=== PATIENT | female | born 1995 | race Caucasian/White ===

== ENCOUNTER 2019-04-04 12:37 | Emergency (ER) | payer OTHER, SELFPAY ==
[2019-04-04 12:38] VITALS: BP 128/83; PULSE 82; RESP 16; TEMP 36.8; O2SAT 99; BMI 27.3
[2019-04-04] MEDS: 0.9% Normal Saline 1,000 ML 1000 ML IV (13:05)
[2019-04-04] MEDS: Ondansetron 4 MG/2 ML Vial IV (13:05)
[2019-04-04 13:18] LABS: Bacteria 0 SEEN /hpf (None Seen); Mucous, Urine 0 SEEN /hpf (<or=2+); Red Blood Cells-Urine 0 SEEN /hpf (0-5); Squamous Epithelial Cells - UA 0 SEEN /hpf (5-10); White Blood Cells 0 SEEN /hpf (0-5)
[2019-04-04 13:20] LABS: Color, Urine Yellow (Yellow); Glucose, Dipstick Normal (Normal); Ketone-Dipstick Negative (Negative); Leukocyte Esterase-Dipstick Negative /ul (Negative); Nitrite-Dipstick Negative (Negative); Occult Blood-Urine Negative /ul (Negative); Protein-Dipstick Negative (Negative); Urine Bilirubin Dipstick Negative (Negative); Urine Clarity Clear (Clear); Urine Urobilinogen Normal (Normal)
[2019-04-04 13:21] LABS: Absolute Lymphocyte Count 1.53 X10^3/ul (0.83-4.51); Absolute Neutrophil Count 3.9 X10^3/uL (2.0-7.7); Basophil# 0.02 X10^3/uL; Basophil% 0.3 % (0-1); Eosinophil# 0.03 X10^3/uL; Eosinophils% 0.5 % (0-5); Hemoglobin 12.8 g/dl (12.0-15.0); Lymphocyte # 1.53 X10^3/ul (4.0); Lymphocyte % 25.8 % (19-41); Mean Corp Hgb Conc 33.7 g/gl (32-36); Mean Corpuscular Hgb 27.1 pg (27.0-32.0); Mean Corpuscular Volume 80.5 fL (81-99); Mean Platelet Vol. 10.6 fl (6.2-12.0); Monocyte# 0.46 X10^3/uL; Monocyte% 7.8 % (0-10); Neutrophil # 3.89 X10^3/uL (2.7-7.7); Neutrophil % 65.6 % (47-70); Platelet Count 188 K/mm3 (150-450); RBC Distribution Width SD 37.5 fl (35.1-43.9); Red Blood Count 4.72 M/mm3 (4.2-5.4); White Blood Count 5.9 K/mm3 (4.4-11.0)
[2019-04-04 13:26] LABS: Internal QC Validated? YES +Cl - CLEAR BKGD; Pregnancy, Urine Negative Negative
[2019-04-04 13:26] LABS: POSITIVE COUNT NO; POSITIVE DIFFERENTIAL NO; POSITIVE MORPHOLOGY NO
[2019-04-04 13:34] LABS: AST(SGOT) 10 U/L (15-37); Alanine Aminotransfer ALT/SGPT 23 U/L (13-56); Albumin, Serum 3.9 g/dL (3.2-5.0); Alkaline Phosphatase 57 U/L (45-117); Anion Gap 7 (5-15); BUN 11 mg/dL (7-18); BUN/Creat Ratio 14.7 RATIO (10-20); Calcium,Total 8.9 mg/dL (8.5-10.1); Chloride 106 mmol/L (98-107); Creatinine, Serum 0.75 mg/dL (0.55-1.02); EST Glomerular Filtration Rate 103 mL/min (>60); Est Glom Filt Rate - Afr Amer 124 mL/min (>60); Estimated Creatinine Clearance 106.77 ml/min; Globulin 3.8 g/dL (2.2-4.2); Glucose 99 mg/dL (74-106); Lipase 78 U/L (73-393); Potassium 3.9 mmol/L (3.5-5.1); Protein, Total 7.7 g/dL (6.4-8.2); Sodium Level 141 mmol/L (136-145)
--- NOTE | 2019-04-04 13:34 | ED.VISSUMM ---
- ER Visit Summary Date of Service: 04/04/19 Chief Complaint: Abdominal pain History of Present Illness: The patient is a 23 F presents to the emergency department abdominal pain. The patient's been having symptoms for the past 2 or 3 days. She states she is been having some abnormal menstrual bleeding and the pain is corresponds to that. She states that the cramping. She is been mildly nauseated without vomiting. She is concerned that she was . She denies any urinary symptoms. She denies any flank pain. She had no history of prior abdominal surgery. She has not found anything that improves the symptoms. Physical Examination: Vital signs reviewed General: Well-nourished, well-developed Head: Normocephalic, atraumatic Eyes: Pupils equal and reactive, extraocular muscles intact Neck, supple, no lymphadenopathy Heart: Regular rate and rhythm Respiratory: No distress, clear bilaterally Abdomen: Soft, nontender, nondistended, no peritoneal signs Back: Nontender Extremities: Nontender, no edema, no cords Skin: Normal color no rash Neuro: Alert and oriented, no focal or lateralizing deficits Test Results: [] Emergency Department Course and Treatment: [The patient really has no reproducible pain. IV was established. Screening labs were obtained. These are unremarkable. Patient has had intermittent pain for 3 days. She is not . There is no evidence of urinary tract infection. At this point, I do feel that she is safe for outpatient follow-up. I am going to treat her with antiemetics and antispasmodics. She was counseled on concerning symptoms and reasons to return. She will be discharged home. Treatment Plan: [] Disposition: Discharge Impression: 1. Periumbilical abdominal pain This note was generated with [employer] dictation software. It may contain incorrect words, spelling, and punctuation that were not noted in review of the chart prior to signing ED Disposition - Plan for ED Patient: Disposition: Home or Assisted Living Instructions: ED Abdominal Pain Unkn Cause Prescriptions: Ondansetron [Zofran Odt] 4 mg PO Q8H PRN PRN #10 tab PRN Reason: Nausea RX: Dicyclomine HCl [Bentyl] 20 mg PO TIDAC #20 cap Referrals: NOT,DEFINED [NON-STAFF] -
[2019-04-04 13:53] VITALS: BP 113/68; PULSE 76; RESP 15
== END 2019-04-04 13:55 | disposition home or self-care (01) ==
PROVIDERS: Emergency Provider Emergency Medicine
DX: R10.33 Periumbilical pain (principal)
CPT/HCPCS: 80053; 81001; 81025; 83690; 85025; 96361; 96374; 99283; J7030; J2405

== ENCOUNTER 2024-10-22 09:27 | Day surgery (SDC) | payer OTHER, SELFPAY ==
[2024-10-22] VITALS (16 sets, daily range): BP systolic 95–130; BP diastolic 58–84; PULSE 71–99; RESP 16–18; TEMP 36.3–36.8; O2SAT 94–100; BMI 27.3
--- NOTE | 2024-10-22 10:09 | EDS_ITS ---
HPI HPI - GI History of Present Illness Chief Complaint: Abd Pain Informant: patient and spouse/S.O. Narrative Narrative: Patient with left-sided abdominal pain started gradually yesterday. She states it is not severe but it is there and unusual. She did home test and it was positive. She states her last normal menstrual cycle started almost 2 weeks ago, she did a test then and it was negative, she was doing that because she had a miscarriage in August and this was the first time she had a cycle since then. Not counting current if , she is G6, P3. She has no medical problems has no history of abdominal surgeries. She denies any urinary symptoms with this, nausea or vomiting, pain in the back, diarrhea, fevers or chills. PFSH PFSH Medical History no medical history no medical history Home Medications ?Medication ?Instructions ?Recorded ?Last Taken ?Type dicyclomine 10 mg capsule 20 mg (2 x 10 mg) PO TIDAC #20 caps 04/04/19 Unknown Rx ondansetron 4 mg disintegrating 4 mg PO Q8H PRN PRN Nausea #10 tabs 04/04/19 Unknown Rx tablet Allergy/AdvReac Type Severity Reaction Status Date / Time No Known Allergies Allergy Verified 10/22/24 09:31 Social History Smoking Status: Never smoker ROS ROS ED Constitutional Constitutional ED: Denies chills or fever(s) Eyes Eyes: Denies change in vision or diplopia ENT ENT ED: Denies rhinorrhea or sore throat Cardiovascular Cardiovascular: Denies chest pain or palpitations Respiratory/Chest Respiratory/Chest: Denies cough or dyspnea Gastrointestinal Gastrointestinal: Reports abdominal pain; Denies diarrhea, nausea or vomiting Genitourinary Genitourinary ED: Denies dysuria or hematuria Musculoskeletal Musculoskeletal: Denies back pain or neck pain Integumentary Denies abscess or rash Neurologic Neurologic: Denies headache(s), paresthesias or weakness Psychiatric Psychiatric: Denies anxiety or suicidal thoughts EXAM Physical Exam Const Vital Signs: 10/22/24 09:28 10/22/24 11:28 10/22/24 13:00 Temperature 97.4 F L Temperature Source Temporal Pulse Rate 82 84 90 Respiratory Rate 16 16 16 Blood Pressure 127/81 H 120/81 H 120/71 Blood Pressure Mean 96 94 87 Pulse Ox 97 99 98 Oxygen Delivery Method Room Air 10/22/24 15:00 Temperature Temperature Source Pulse Rate 84 Respiratory Rate 16 Blood Pressure 119/81 H Blood Pressure Mean 93 Pulse Ox 100 Oxygen Delivery Method Room Air Positive well nourished and well developed General Appearance ED: well developed and NAD HEENT Reports moist mucous membranes normocephalic and atraumatic Eyes PERRL and EOMs intact bilaterally Neck full ROM and supple Resp normal respiratory effort and clear to auscultation bilaterally Cardio regular rate, regular rhythm and no murmurs GI non-distended GI Narrative: Very mild tenderness left mid abdomen. She is nontender throughout the pelvis. Auscultation: normoactive bowel sounds Palpation: soft Back/Spine no CVA tenderness General Back: other FROM Extremity normal to inspection General Extremety ED: Negative for edema, pulses abnormal or tenderness General Extremity: Negative for edema or pulses abnormal Neuro oriented x3, CN's II-XII intact bilaterally and no sensory deficits noted Sensorium / Orientation: awake and alert Motor Exam: strength 5/5 throughout Skin no rashes or lesions noted and no wounds MDM MDM MDM Narrative Medical decision making narrative: Unilateral abdominal pain with positive home test certainly suggest the possibility of an ectopic , however the patient does not have any pelvic tenderness, not that she could not still have an ectopic, but initially obtained a urine since she urinated soon after my evaluation; her test is positive so we sent a quantitative hCG which is in the 300s, and obtained an ultrasound to evaluate for ectopic. I reviewed the images and the report and spoke with radiologist, who confirms that the patient does have very suspicious findings for an ectopic near the left ovary that is probably in the distal aspect of the fallopian tube. Small amount of free fluid. I discussed with the armhole baster jumpbasting on-call Dr. 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 She came and evaluated the patient, and plans on taking the patient for laparoscopic surgery. Lab Data Attestation: I reviewed the patient's lab results. Labs: Laboratory Results - last 24 hr 10/22/24 10/22/24 10:06 11:30 WBC 4.3 L RBC 4.35 Hgb 11.4 L Hct 36.6 L MCV 84.1 MCH 26.2 L MCHC 31.1 L RDW Std Deviation 42.7 RDW Coeff of Lianne 13.8 Plt Count 212 MPV 10.7 Immature Gran % (Auto) 0.500 Neut % (Auto) 61.5 Lymph % (Auto) 28.9 [place] % (Auto) 7.0 Eos % (Auto) 1.6 Baso % (Auto) 0.5 Absolute Neuts (auto) 2.6 Absolute Lymphs (auto) 1.23 Nucleated RBC % 0 Sodium 138 Potassium 3.9 Chloride 112 H Carbon Dioxide 24.0 Anion Gap 3 L BUN 15 Creatinine 0.80 Estim Creat Clear Calc 118.39 Est GFR (MDRD) Af Amer 111 Est GFR (MDRD) Non-Af 91 BUN/Creatinine Ratio 18.8 Glucose 97 Calcium 8.9 Total Bilirubin 0.30 AST 14 L ALT 24 Alkaline Phosphatase 58 Total Protein 7.7 Albumin 3.8 Globulin 3.9 Albumin/Globulin Ratio 1.0 HCG, Quant 338 H Serum , Qual POSITIVE Urine Color Straw Urine Clarity Clear Urine pH 6.0 Ur Specific [place] 1.005 Urine Protein Negative Urine Glucose (UA) Normal Urine Ketones Negative Urine Occult Blood 10 H Urine Nitrite Negative Urine Bilirubin Negative Urine Urobilinogen Normal Ur Leukocyte Esterase Negative Urine RBC 0 SEEN Urine WBC 0 SEEN Ur Squamous Epith Cells 0 SEEN Urine Bacteria 0 SEEN Urine Mucus 0 SEEN Radiography Diagnostic Testing: Clinical Impression(s) from Imaging Studies Obstetrics Ultrasound 10/22/24 11:48 IMPRESSION: No evidence of intrauterine gestational sac. Left adnexal findings raise the possibility of ectopic . Electronically Signed: Sylvester Ragsdale MD at 14:25 EST , ADDENDUM: 10/22/24 1438 IMPRESSION: No evidence of intrauterine gestational sac. Left adnexal findings raise the possibility of ectopic . N.B. : The above Results were Read Back by Sylvester Ragsdale MD to Venancio Zhong MD, and understanding confirmed on 10/22/2024 14:31:58 (ET). Electronically Signed: Sylvester Ragsdale MD at 14:25 EST , Management Discussion w/another healthcare provider: Nurse Special and Radiologist Critical Care Time Critical Care Time: Yes Critical care time (excluding procedures): 30-74 minutes (36 min), Including time spent:, Discussing w/Patient &/or Family/Sales Support Rep, Discussing w/Consultants, Arranging Admission or Transfer and Performing Direct Patient Care at Bedside Discharge Plan Triage Chief Complaint: Abd Pain ED Provider: Venancio Zhong Dx/Rx/DC Orders Clinical Impression: Ectopic of left ovary Prescriptions: No Action ondansetron 4 MG tablet 4 mg PO Q8H PRN PRN (Reason: Nausea) Qty: 10 0RF dicyclomine 10 MG capsule 20 mg PO TIDAC Qty: 20 0RF Primary Care Provider: Care Physician,No Primary Referrals: Care Physician,No Primary [Primary Care Provider] - Print Language: Mongolian Disposition Disposition: Acute Care [facility]
[2024-10-22 10:18] LABS: Absolute Lymphocyte Count 1.23 X10^3/uL (0.83-4.51); Absolute Neutrophil Count 2.6 X10^3/uL (2.0-7.7); Basophil# 0.02 X10^3/uL; Basophil% 0.5 % (0-1); Eosinophil# 0.07 X10^3/uL; Eosinophils% 1.6 % (0-5); Hematocrit 36.6 % (37-47); Hemoglobin 11.4 g/dL (12.0-15.0); Lymphocyte # 1.23 X10^3/ul (0.83-4.51); Lymphocyte % 28.9 % (19-41); Mean Corp Hgb Conc 31.1 g/dL (32-36); Mean Corpuscular Hgb 26.2 pg (27.0-32.0); Mean Corpuscular Volume 84.1 fL (81-99); Mean Platelet Vol. 10.7 fl (6.2-12.0); NRBC Flagged by Analyzer 0 % (0-5); Neutrophil # 2.62 X10^3/uL (2.7-7.7); Neutrophil % 61.5 % (47-70); Platelet Count 212 K/mm3 (150-450); RBC Distribution Width CV 13.8 % (11.6-14.6); RBC Distribution Width SD 42.7 fl (35.1-43.9); Red Blood Count 4.35 M/mm3 (4.2-5.4); White Blood Count 4.3 K/mm3 (4.4-11.0)
[2024-10-22 10:35] LABS: Internal QC Validated? YES +Cl - CLEAR BKGD
[2024-10-22 10:37] LABS: Pregnancy, Serum, hCG Quali. POSITIVE Negative
[2024-10-22 10:43] LABS: AST(SGOT) 14 U/L (15-37); Alanine Aminotransfer ALT/SGPT 24 U/L (13-56); Albumin, Serum 3.8 g/dL (3.2-5.0); Alkaline Phosphatase 58 U/L (45-117); Anion Gap 3 (5-15); BUN 15 mg/dL (7-18); BUN/Creat Ratio 18.8 RATIO (10-20); Calcium,Total 8.9 mg/dL (8.5-10.1); Chloride 112 mmol/L (98-107); EST Glomerular Filtration Rate 91 mL/min (>60); Est Glom Filt Rate - Afr Amer 111 mL/min (>60); Estimated Creatinine Clearance 118.39 ml/min; Globulin 3.9 g/dL (2.2-4.2); Glucose 97 mg/dL (74-106); Potassium 3.9 mmol/L (3.5-5.1); Protein, Total 7.7 g/dL (6.4-8.2); Sodium Level 138 mmol/L (136-145)
[2024-10-22 11:33] LABS: Bacteria 0 SEEN /hpf (None Seen); Mucous, Urine 0 SEEN /hpf (<or=2+); Red Blood Cells-Urine 0 SEEN /hpf (0-5); Squamous Epithelial Cells - UA 0 SEEN /hpf (5-10); White Blood Cells 0 SEEN /hpf (0-5)
[2024-10-22 11:36] LABS: Color, Urine Straw (Yellow); Glucose, Dipstick Normal (Normal); Ketone-Dipstick Negative (Negative); Leukocyte Esterase-Dipstick Negative /ul (Negative); Nitrite-Dipstick Negative (Negative); Occult Blood-Urine 10 /ul (Negative); Protein-Dipstick Negative (Negative); Specific Gravity, Urine 1.005 (1.002-1.030); Urine Bilirubin Dipstick Negative (Negative); Urine Clarity Clear (Clear); Urine Urobilinogen Normal (Normal)
--- NOTE | 2024-10-22 11:48 | US_ITS ---
We are attempting to reach an attending provider to discuss findings. An addendum with communication details will be sent when the communication is complete. EXAM: US , TRANSVAGINAL CLINICAL INDICATION: left sided pain, bleeding HCG 338 TECHNIQUE: Real-time endovaginal obstetrical ultrasound of the maternal pelvis and a first trimester with image documentation. Transvaginal imaging was used for better evaluation of the fetus and adnexa. COMPARISON: No relevant prior studies available. FINDINGS: GESTATION: There is measures 7.9 x 6.0 x 4.5 cm with endometrial thickness of 6 mm. No evidence of an intrauterine gestational sac. PLACENTA/AMNIOTIC FLUID: Cannot be adequately evaluated due to the early gestational age. UTERUS/CERVIX: Normal. Anteverted. No uterine mass. OVARIES: Left ovary measures 2.6 x 2.2 x 1.6 cm. Additional 2.6 cm complex structure adjacent to the left ovary raises the possibility of ectopic . Right ovary measures 2.5 x 2.5 x 2.2 cm and contains 2.5 cm complex cyst/corpus luteum. FREE FLUID: Small amount of free fluid is present within the cul-de-sac. US/Transvaginal w/Preg US IMPRESSION: No evidence of intrauterine gestational sac. Left adnexal findings raise the possibility of ectopic . Electronically Signed: Sylvester Ragsdale MD at 14:25 EST ,
[2024-10-22 12:33] LABS: hCG Titer Quant., Serum 338 mIU/mL (1-3)
--- NOTE | 2024-10-22 16:18 | HP.PCM_ITS ---
History and Physical Date of Admission: 10/22/24 I was asked to consult on this patient in the emergency room by Dr. Zhong for suspected ectopic . 29-year-old female presents with LMP approximately 2 weeks ago. She started having some left-sided mid abdominal pain yesterday, was sharp and stabbing at time. Was able to sleep last night but it was worse this morning so she came into the emergency room to be evaluated because she was concerned. She denies any fevers or chills. She has had vaginal bleeding over the past 2 weeks it was like a period and is trailing off now. She denies any chest pain, shortness of breath, or palpitations. She denies any nausea vomiting diarrhea or constipation or abnormal vaginal discharge Past medical history: Patient denies any cardiac, renal, respiratory or bleeding disorders Past surgical history: None Social history: Patient denies any drugs alcohol or tobacco Allergies: None Medications patient states she takes some herbs and supplements and a vitamin Obstetrical history: Patient reports 2 spontaneous miscarriages that she passed at home, a full-term and the baby 1 day after , 2 other full- term deliveries and those children are living, then an early miscarriage approximately 2 months ago that she passed at home, then the current Physical exam: Vitals reviewed General: Awake, alert, no acute distress Lungs clear to auscultation bilaterally Heart S1-S2 regular rate and rhythm Skin: Warm dry and intact Abdomen soft, nondistended, no rebound, no referred pain with Right lower quadrant palpation but some significant guarding in the left lower quadrant. No CVA tenderness Consent obtained for sensitive exam. Normal external genitalia, normal urethra and anus, normal vagina with small amount of brown-tinged mucus discharge. Cervix is closed. Uterus is mobile, 5 weeks size, significant tenderness in the left adnexal with cervical motion Assessment & Plan Assessment/Plan (1) Ruptured left tubal ectopic causing hemoperitoneum: PLAN: US and labs reviewed. R/b/a to expectant versus medical versus surgical management were reviewed with the patient and her . Their questions were answered to their satisfaction. After discussion they elect to proceed with laparoscopic evacuation of ectopic , will attempt a left salpingostomy but they understand there is a chance of salpingectomy. Consent was signed. Team was notified. This consultation in the emergency room was ordered by Dr. Zhong and I reviewed findings and plan with him directly after my evaluation.
--- NOTE | 2024-10-22 17:05 | PCM.PRE.AN2 ---
ASA Classification* ASA Classification ASA Classification: 2 and E Assessment & Plan Anesthesia* Anesthesia Assessment Anesthesia Assessment: Discussed sedation and/or anesthesia options, risks, benefits, and alternatives with patient/parents/legal guardian/POA. Questions invited. The patient/parents/legal guardian/POA seems to understand and agrees to proceed with anesthesia plan. Reviewed the physical assessment, medical history, allergy history and patient home medications list prior to surgery/procedure/anesthetic and documented any changes. Performed airway and anesthesia risk assessments. Anesthesia Type Anesthesia Type: General History Source History Obtained from:: Patient and Chart Anesthesia Focused Assessment* Temperature: 98.2 F Pulse Rate: 86 Blood Pressure: 124/78 Respiratory Rate: 16 Pulse Ox: 99 Oxygen Delivery Method: Room Air Airway Assessment Mouth opens: >3 cm Mallampati Score: III Teeth Condition: Dentures (Patient has full upper and lower dentures. They will come out.) Neck Range of motion (ROM): Full ROM Focused Labs Anesthesia Preop lab: CBC WBC 4.3 K/mm3 (4.4-11.0) L 10/22/24 10:06 RBC 4.35 M/mm3 (4.2-5.4) 10/22/24 10:06 Hgb 11.4 g/dL (12.0-15.0) L 10/22/24 10:06 Hct 36.6 % (37-47) L 10/22/24 10:06 Plt Count 212 K/mm3 (150-450) 10/22/24 10:06 CHEMISTRY Potassium 3.9 mmol/L (3.5-5.1) 10/22/24 10:06 Sodium 138 mmol/L (136-145) 10/22/24 10:06 BUN 15 mg/dL (7-18) 10/22/24 10:06 Creatinine 0.80 mg/dL (0.55-1.02) 10/22/24 10:06 Glucose 97 mg/dL (74-106) 10/22/24 10:06 COAG HCG, Quant 338 mIU/mL (1-3) H 10/22/24 10:06 Urine Test Negative Negative 04/04/19 12:50 Pre-Assessment Diagnosis/Proposed Procedure Planned Operative Procedure(s): Laparoscopic removal of ectopic . Anesthesia History Anesthesia History - hogshead dumper: Anesthesia History - hogshead dumper Hx Hospitalization Any Problems With Anesthesia No 10/22/24 16:11 Cholinesterase deficiency No 10/22/24 16:11 You/Your Family Experience No 10/22/24 16:11 fever (hyperthermia) with Relationship Recent Exposure to Contagious No 10/22/24 16:11 Disease Does patient have nerve No 10/22/24 16:11 stimulator Patient instructed to have No 10/22/24 16:11 device shut off --Does patient have Pacemaker or ICD? When Was Last Pacemaker Check QUESTION #4 FULL TEXT: You/Your Family Experience fever (hyperthermia) with Anesthesia Last Oral Intake Last Oral intake: Last Oral Intake NPO since 15:00 10/22/24 16:11 Meds taken in AM with sips of water? Meds patient instructed to PT TOOK SEVERALSIPS OF WATER 10/22/24 16:11 take am of surgery WHILE HERE IN ED WITHOUT STAFF KNOWLEDGE. PONV PONV - hogshead dumper: PONV - hogshead dumper Female HX of Motion Sickness HX of N/V After Surgery Non-Smoker Duration of Surgery greater than 60 minutes Number of Risk Factors PONV Score Height & Weight Height & Weight: Anesthesia: Height & Weight Height 5 ft 8 in 10/22/24 16:11 Weight: 81.647 kg 10/22/24 16:11 Body Mass Index (BMI) 27.3 10/22/24 16:11 Respiratory Assessment Respiratory Assessment - hogshead dumper: Respiratory Tract Infection Hx - hogshead dumper Hx Respiratory Tract Infection No 10/22/24 16:11 STOP Sleep Apnea STOP Sleep Apnea - hogshead dumper: STOP Sleep Apnea - hogshead dumper Hx Hypertension No 10/22/24 16:11 Hx Sleep Apnea No 10/22/24 16:11 CPAP BIPAP Do you snore loudly (louder No 10/22/24 16:11 than talking or can be heard Do you often feel tired/ No 10/22/24 16:11 fatigued/ sleepy during daytime? Has anyone observed you stop No 10/22/24 16:11 breathing during sleep? STOP Results Negative 10/22/24 16:11 QUESTION #5 FULL TEXT : Do you snore loudly (louder than talking or can be heard through closed doors)? 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 Specify any problems Hx of Preganancy in last 3 Months Nurse Filling Out Transfusion & Questions: Date: Time: Patient unable to answer at this time (ie. confused, unrespo /Reproduction History /Reproductive History - hogshead dumper: /Reproductive Hx- hogshead dumper Hx Now Yes 10/22/24 16:11 Gestational Age (in weeks): EDC: Hx Hx Para Hx Section SAB No 10/22/24 16:11 PFSH Medical History no medical history Home Medications ?Medication ?Instructions ?Recorded ?Last Taken ?Type NK 10/22/24 Unknown History Allergy/AdvReac Type Severity Reaction Status Date / Time No Known Allergies Allergy Verified 10/22/24 09:31 Surgical History no surgical history Social History Smoking Status: Never smoker Review of Systems (Anesthesia) ROS Narrative System reviewed and no additional complaints, except as documented.
--- NOTE | 2024-10-22 17:15 | FAL_PTH ---
PATIENT: NASIR HIGUERA LOC: [facility] [place] U#:[id number] AGE/SX: 29/F ROOM: RE10/22/[address]: Dr. Natali Franz MD : 1995 BED: DIS: 10/22/2024 SPEC #: [id number] RECD: 10/24/24 07:29 STATUS: JUDY REMaryjo #: [id number] CESILIA: 10/22/24 17:[address]: Natali Franz DEPT: SURGICAL PATHOLOGY RECD BY: Rimma Aldana ENTERED: 10/24/24 09:45 SP TYPE: ECTOPIC OTHR DR: No Primary Care Phys Tissues: ECTOPIC PREG Procedures: Surgery Specimen Level IV HEADER OPERATION: Laparoscopic salpingostomy, removal ectopic PRE-OP DIAGNOSIS: Ruptured left tubal ectopic causing hemoperitoneum TISSUE SUBMITTED: Left tubal contents MICROSCOPIC DIAGNOSIS Left tubal contents: Decidua and immature chorionic villi (consistent with ectopic ) and blood clots. SJ: mr 10/25/2024 MICROSCOPIC DESCRIPTION Slides are reviewed. GROSS DESCRIPTION Received in fixative is one container labeled with the patient's name and designated Left tubal contents. The specimen consists of multiple fragments of blood clots measuring in aggregate 3.0 x 3.0 x 0.3cm. No tissue is identified. The entire specimen is submitted in two cassettes. 10/24/2024 TC:5 CPT:83032
[2024-10-22] MEDS: Bupivacaine Mpf 0.5% 30 ML VIAL (18:18)
--- NOTE | 2024-10-22 18:23 | PCM.OPRPT ---
Problems Associated Problem List Diagnoses (1) Ruptured left tubal ectopic causing hemoperitoneum: Operative Report (Standard) Operative Information Date of Procedure: 10/22/24 Pre-Operative Diagnosis: acute abdominal pain, left tubal ectopic Post-Operative Diagnosis: same Surgery/Procedure Performed: Laparoscopic left salpingotomy and removal of ectopic quality assurance technician: No Type of Anesthesia: General RN Documented Start/Stop Times: Operation Date: 10/22/24 17:15 Case Time Anesthesia Start 10/22/24 17:23 Into Room 10/22/24 17:23 Procedure Start 10/22/24 17:53 Procedure End 10/22/24 18:22 Procedure Start Time: 17:53 Procedure Stop Time: 18:22 Select all DRAINS/GRAFTS/IMPLANTS that apply: None Special Medications: none Estimated Blood Loss: 20 Fluids Replaced: 800 Specimen collected: Yes Description of specimen(s) removed: left tubal contents Description of surgery: The patient was taken to the operating room where she was prepped and draped in the dorsolithotomy position. A weighted speculum was placed in the vagina and the anterior lip of the cervix was grasped with a tenaculum. The won uterine manipulator was placed and the remainder of the instruments were removed from the vagina. Attention was turned to the abdomen. All port sites were infiltrated with 0.5% Marcaine before skin incisions were made. A 5 mm intraumbilical incision was made. The anterior abdominal wall was tented up with 2 towel clamps while a 5 mm blade less trocar and sleeve were directly inserted. Intraperitoneal placement was confirmed with the laparoscope. The pneumoperitoneum was created and the underlying abdominal contents were intact. The patient was placed in Trendelenburg. Right and left lower quadrant ports were placed under direct visualization lateral to the inferior epigastric vessels. The bowel was swept away and the above findings were noted. There was some clot and debris that may have been ectopic near the left tube and ovary, this was removed to be sent as part of the pathology specimen. The suction historian dramatic arts was used to remove some of the hemoperitoneum. There is a left ovarian cyst that appeared hemorrhagic and was ruptured and had a small amount of blood and clear fluid. I want a make sure that was not the ectopic . It was hemostatic by the end of the case. Since the left tube continued to drip blood decision was made to make a salpingostomy across the dilated portion of the tube. This was done with the monopolar scissors with cautery. Some contents were irrigated out with the suction historian dramatic arts. The edges were then cauterized with the monopolar scissors and hemostasis was noted. There was no active bleeding from the ovarian cyst or at the ectopic site. Heema blast was placed over the tube. The lateral ports were removed under direct visualization and no active bleeding was noted. The pneumoperitoneum was released. The skin incisions were closed with Monocryl suture in a subcuticular fashion and skin glue. The vaginal instruments were removed and the vaginal sweep was completed by me. The procedure was performed by me with assistance. All sponge and needle counts were correct and the patient was taken to the recovery room in stable condition. Surgical Findings: hemoperitoneum with active bleeding from left fallopian tube fibria, mildly enlarged distal left tube, normal right tube and ovary normal cervix Complications Complications: No Admit VTE Documentation VTE Present on Admission: No VTE Mechan Device Prophylaxis: SCD's
--- NOTE | 2024-10-22 18:28 | PCM.DC ---
Discharge Instructions Diet Discharge Diet: No restrictions DC O2, CPAP, BIPAP needs Home O2 Discharge instructions: No Dressing / Incision May resume sexual activity in: 1 week Lifting Restrictions: 15 lbs x 1 week Dressing / Incision Call your doctor if your incision/area has: Sudden Increased Bleeding and Foul Smelling Discharge Call your doctor if you observe: Fever of 101 or Higher Cleanse incision/area with: Soap & Water (Your incisions have skin glue and it can get wet. Leave on until it falls off) Follow Up Care Please Follow Up With: Natali Franz MD When: In my office 1-2 weeks or as needed. Call my office at [phone] to schedule a follow up appointment. Test Results: Test results from this visit will be discussed in further detail at your follow-up appointment, if applicable. Discharge Plan Admission Primary Reason for Your Visit: Left ectopic Attending Provider: Natali Franz Primary Care Provider: Care Physician,No Primary Instructions Print Language: Italian Discharge Orders/Prescriptions Prescriptions: No Action NK Referrals / Follow Up: Care Physician,No Primary [Primary Care Provider] - Disposition Disposition (needs filled in before D/C Order can be placed): Home, Self Care
--- NOTE | 2024-10-22 18:39 | PCM.POST.ANE ---
Anesthesia: Postop Eval I Current Vital Signs Temperature: 98.3 F Pulse Rate: 99 Blood Pressure: 95/68 Respiratory Rate: 16 Pulse Ox: 99 Oxygen Delivery Method: Room Air Assessment Airway patent: Yes Spontaneous unlabored respirations: Yes Mental status: Awake and Calm nausea: No Vomiting: No Anesthesia Complication: No Fluid Hydration Crystalloid volume administer (ml): 800 Total IV fluid infused: 800 Progress Note Anesthesia document: Postop Eval 1 completed: Yes
--- NOTE | 2024-10-22 19:02 | PCM.POSTANE2 ---
Anesthesia Postop Eval I Sum Postop Eval Completion status Anesthesia document: Postop Eval 1 completed: Yes Anesthesia Postop Eval I Summary Anesthesia Postop Eval I Summary: Anesthesia Postop Eval I: Assessment Summary Airway patent Yes 10/22/24 18:43 Spontaneous unlabored Yes 10/22/24 18:43 respirations Mental status Awake,Calm 10/22/24 18:43 nausea No 10/22/24 18:43 Vomiting No 10/22/24 18:43 Anesthesia Postop Eval I: Fluid Summary Crystalloid volume administer 800 10/22/24 18:43 (ml) Colloids volume administered ( ml) Blood Product volume administered (ml) Total IV fluid infused 800 10/22/24 18:43 Anesthesia Postop Eval I: Summary Notes Anesthesia Complication No 10/22/24 18:43 Anesthesia Complication Comment: Post-operative progress note Anesthesia: Postop Eval II Evaluation Mental status: Awake and Calm Pain Level: 1 nausea: No Vomiting: No Complications Anesthesia Complication: No
== END 2024-10-22 19:43 | disposition home or self-care (01) ==
LOC: ED 16:08 → SDC 16:12 → ACINP 16:13
PROVIDERS: Emergency Provider Emergency Medicine; Visit Provider Obstetrics & Gynecology
PROC: 10T24ZZ Resection of Products of Conception, Ectopic, Percutaneous Endoscopic Approach (ICD-10-PCS; CPT 59150; principal; 2024-10-22 17:00)
DX: O00.102 Left tubal pregnancy without intrauterine pregnancy (principal); O34.81 Maternal care for other abnormalities of pelvic organs, first trimester; K66.1 Hemoperitoneum; O99.891 Other specified diseases and conditions complicating pregnancy; N83.202 Unspecified ovarian cyst, left side; O99.611 Diseases of the digestive system complicating pregnancy, first trimester
CPT/HCPCS: 59150; 00840; 76817; 80048; 80053; 81001; 84702; 84703; 85025; 88305; 99284; A4216; J2405